=== PATIENT | male | born 1940 | race Caucasian/White ===

== ENCOUNTER 2021-06-14 13:41 | Inpatient (IN) ==
[2021-06-14] MEDS ORDERED: Acetaminophen 325 MG TABLET PO PRN (16:37)
[2021-06-14] MEDS ORDERED: Melatonin 3 MG TABLET PO PRN (16:37)
[2021-06-14] MEDS ORDERED: Ondansetron 4 MG/2 ML VIAL IVP PRN (16:37)
[2021-06-14] MEDS ORDERED: Naloxone 0.4 MG/ML INJ IVP PRN (16:37)
[2021-06-14 19:05] LABS: Immature Reticulocyte % 16.4 % (11.0-38.0); Retculocyte # 0.03 M/mcL (0.05-0.10); Reticulocyte % 1.2 % (1.6-2.8)
[2021-06-14 19:13] LABS: Basophils # 0.1 K/mcL (0.0-0.2); Eosinophils % 0.6 %; Hematocrit 26.2 % (37.5-50.1); Hemoglobin 8.6 g/dL (12.9-16.9); Immature Granulocytes % 0.6 % (0-4); Immature Platelets 6.7 % (1.1-6.1); Lymphocytes % 74.1 %; Mean Corpuscular HGB Conc 32.8 g/dL (31.6-35.5); Mean Corpuscular Hemoglobin 34.3 pg (28.0-33.3); Mean Corpuscular Volume 104.4 fL (83.0-100.0); Monocytes # 0.1 K/mcL (0.0-1.3); Monocytes % 3.6 %; Neutrophils # 0.3 K/mcL (1.6-8.9); Red Blood Count 2.51 M/mcL (4.19-5.50); Red Cell Distribution Width 15.9 % (11.5-14.5); Segmented Neutrophils % 18.1 %; White Blood Count 1.7 K/mcL (4.3-11.1)
[2021-06-14 19:29] LABS: Albumin 3.7 g/dL (3.5-5.7); Albumin/Globulin Ratio 1.1 (1.1-2.2); Bilirubin,Total 0.6 mg/dL (0.3-1.0); Calcium 9.1 mg/dL (8.6-10.3); Globulin 3.5 g/dL (2.4-3.5); Potassium 4.2 mEq/L (3.5-5.1); Total Protein 7.2 g/dL (6.4-8.9)
[2021-06-14 19:43] LABS: % Iron Saturation 19 % (20-55); Iron 44 mcg/dL (65-175); Lactate Dehydrogenase 156 Units/L (140-271); Transferrin 167 mg/dL (203-362)
[2021-06-14 19:46] LABS: Lymphocytes # 1.3 K/mcL (0.6-4.6)
[2021-06-14 19:48] LABS: Platelet Count 61 K/mcL (140-400)
[2021-06-14 20:08] LABS: Ferritin 474 ng/mL (20-250)
[2021-06-14 20:26] LABS: Folate > 22.3 ng/mL (3.0-16.0); Vitamin B12 1188 pg/mL (250-1100)
[2021-06-14 20:48] LABS: Reactive Lymphocytes Present (Not Present)
[2021-06-14 20:49] LABS: Platelet Estimate Marked Decrease (Normal)
[2021-06-14 20:50] LABS: Ovalocytes 1+ (Not Present)
[2021-06-14] MEDS: Gabapentin 300 MG CAPSULE PO SCH (22:32)
[2021-06-15] MEDS: Gabapentin 300 MG CAPSULE PO SCH ×2 (07:13→20:23)
[2021-06-15 07:50] LABS: Red Blood Count 2.21 M/mcL (4.19-5.50)
[2021-06-15 07:52] LABS: Basophils # 0.1 K/mcL (0.0-0.2); Hematocrit 23.3 % (37.5-50.1); Hemoglobin 7.5 g/dL (12.9-16.9); Immature Platelets 7.5 % (1.1-6.1); Lymphocytes # 1.1 K/mcL (0.6-4.6); Mean Corpuscular HGB Conc 32.2 g/dL (31.6-35.5); Mean Corpuscular Hemoglobin 33.9 pg (28.0-33.3); Mean Corpuscular Volume 105.4 fL (83.0-100.0); Mean Platelet Volume 11.8 fL (9.4-12.4); Neutrophils # 0.3 K/mcL (1.6-8.9); Red Cell Distribution Width 15.7 % (11.5-14.5); White Blood Count 1.5 K/mcL (4.3-11.1)
[2021-06-15 08:15] LABS: Albumin 3.3 g/dL (3.5-5.7); Albumin/Globulin Ratio 1.1 (1.1-2.2); Bilirubin,Direct 0.1 mg/dL (0.0-0.2); Bilirubin,Indirect 0.4 mg/dL (0.0-1.0); Bilirubin,Total 0.5 mg/dL (0.3-1.0); Calcium 8.4 mg/dL (8.6-10.3); Globulin 2.9 g/dL (2.4-3.5); Potassium 4.2 mEq/L (3.5-5.1); Total Protein 6.2 g/dL (6.4-8.9)
[2021-06-15 08:30] LABS: Platelet Count 54 K/mcL (140-400)
[2021-06-15 08:40] LABS: Platelet Estimate Marked Decrease (Normal)
[2021-06-15] MEDS ORDERED: 0.9 % Sodium Chloride 500 ML ONE (13:00)
[2021-06-15 13:22] LABS: Hemoglobin 7.4 g/dL (12.9-16.9)
[2021-06-15 20:08] LABS: Hemoglobin 7.8 g/dL (12.9-16.9)
[2021-06-15 20:10] LABS: Hematocrit 23.7 % (37.5-50.1)
[2021-06-16 03:19] LABS: Hemoglobin 7.5 g/dL (12.9-16.9); Mean Corpuscular Volume 105.5 fL (83.0-100.0)
[2021-06-16 03:21] LABS: Hematocrit 23.2 % (37.5-50.1); Immature Platelets 7.8 % (1.1-6.1); Mean Corpuscular HGB Conc 32.3 g/dL (31.6-35.5); Mean Corpuscular Hemoglobin 34.1 pg (28.0-33.3); Mean Platelet Volume 10.9 fL (9.4-12.4); Red Cell Distribution Width 14.9 % (11.5-14.5); White Blood Count 1.6 K/mcL (4.3-11.1)
[2021-06-16 03:32] LABS: BUN/Creatinine Ratio 23 (6-26); Blood Urea Nitrogen 27 mg/dL (8-23); Calcium 8.7 mg/dL (8.6-10.3); Carbon Dioxide 26 mEq/L (23-29); Chloride 108 mEq/L (98-107); Glucose 109 mg/dL (70-105); Osmolality,Calculated 296 (280-300); Sodium 140 mEq/L (136-145); eGFR For African Americans > 60 (> 60); eGFR For Non-African Americans > 60 (> 60)
[2021-06-16 03:53] LABS: Platelet Count 52 K/mcL (140-400)
[2021-06-16 04:30] LABS: Lymphocytes # 1.1 K/mcL (0.6-4.6); Neutrophils # 0.5 K/mcL (1.6-8.9); Platelet Estimate Decreased (Normal)
[2021-06-16] MEDS: Gabapentin 300 MG CAPSULE PO SCH (08:27)
[2021-06-16 08:36] VITALS: BP 145/88; PULSE 89; TEMP 98.6; O2SAT 99
== END 2021-06-16 10:25 | disposition home health service (06) | DRG 809 ==
LOC: 2NENU → SUATTDRO 16:14
PROVIDERS: ADMIT Internal Medicine; ATTEND Family Medicine